=== PATIENT | female | born 1965 | race Caucasian/White ===

== ENCOUNTER 2017-12-29 06:06 | Day surgery (SDC) | payer BC ==
[~2017-12-29] VITALS: Ht 167.6 cm; Wt 75.3 kg
[~2017-12-29 06:06] MED LIST: ASPI81EC; ATEN25; ATOR10; AZIT250 PO; Aspirin EC81 MG PO; BENADRYL25 MG PO; HYDACE5; Hair, Skin & N1 EACH PO; IBUP600 PO; LISI20; MULVITA; NITR.4SL; SIMV10 PO; [UNRECOGNIZED DRUG - REMARK]
== END 2017-12-29 11:56 | disposition home or self-care (01) ==
LOC: ORSCMMR 06:06
PROVIDERS: Internal Medicine Gastroenterology
PROC: 0DJD8ZZ Inspection of Lower Intestinal Tract, Via Natural or Artificial Opening Endoscopic (ICD-10-PCS; principal; 2017-12-29 11:00)
DX: Z12.11 Encounter for screening for malignant neoplasm of colon (principal); I25.2 Old myocardial infarction; Z79.82 Long term (current) use of aspirin; Z79.899 Other long term (current) drug therapy; Z87.891 Personal history of nicotine dependence; E78.00 Pure hypercholesterolemia, unspecified
CPT/HCPCS: J7120

== ENCOUNTER → 2021-02-21 | Outpatient (CLI) | payer BC ==
[2021-02-21 19:43] LABS: Candida species (DNA Probe) Negative (NEGATIVE); G. vaginalis (DNA Probe) Negative (NEGATIVE); T. vaginalis (DNA Probe) Negative (NEGATIVE)
== END ==
LOC: PLD 18:39 → LAB SHORT 18:39
PROVIDERS: Physician Assistant
DX: N76.0 Acute vaginitis (principal); Z88.8 Allergy status to other drugs, medicaments and biological substances
CPT/HCPCS: 87086; 87480; 87510; 87660

== ENCOUNTER → 2024-06-11 | Outpatient (CLI) | payer BC ==
[2024-06-11 17:11] LABS: CHOL/HDL RATIO 3.7; Cholesterol 199 mg/dL (50-200); HDL Cholesterol 54 mg/dL (>39); Low Density Lipoprotein Chol 108 mg/dL (0-110); Triglycerides 187 mg/dL (30-160); Very Low Density Lipoprot Chol 37 mg/dL (6-32)
== END | disposition home or self-care (01) ==
LOC: LAB 09:15 → LAB SHORT 09:15
PROVIDERS: Nurse Practitioner Family
DX: E55.9 Vitamin D deficiency, unspecified (principal); Z79.899 Other long term (current) drug therapy
CPT/HCPCS: 80061; 82306

== ENCOUNTER → 2025-08-01 | Outpatient (CLI) | payer BC | LOC: LAB SHORT 14:22 → LAB 14:22 | DX: R30.0 Dysuria (principal) | CPT/HCPCS: 87077; 87086; 87186 ==